=== PATIENT | female | born 1990 | race Caucasian/White ===

== ENCOUNTER 2016-07-02 04:22 | Emergency (ER) | payer BC, OTHER ==
[2016-07-02 04:31] VITALS: BP 142/79; PULSE 120; RESP 20; TEMP 98.7
[2016-07-02] MEDS ORDERED: ACETAMINOPHEN TAB 325 MG TAB PO STA (05:23)
--- NOTE | 2016-07-02 05:23 | ED ---
URI HPI - General Chief Complaint: Upper Respiratory Infection Stated Complaint: congestion Time Seen by Provider: 07/02/16 05:00 Source: patient Mode of arrival: ambulatory Limitations: no limitations - History of Present Illness Initial Comments: This patient is a 25-year-old woman who presents with complaint that she has had 2 weeks of nasal congestion and right maxillary sinus pressure. The patient states that she is having moderate pressure type pain. It is worse when she attempts to blow her nose. She has not had any relieving factors. She may have also had some fevers associated. The patient states that she is so she did not take any medications. She was attempting to get in with her physician but they did not have appointments until the coming week so she came here. Patient denies abdominal pain, leg swelling, contraction type pains. She is having good movements. MD Complaint: nasal congestion, sinus pain -: week(s) Severity: moderate Quality: other (Pressure) Consistency: constant Improves With: nothing Worsens With: other (Attempting to blow her nose) Associated Symptoms: nasal congestion, cough - Related Data Home Medications Medication Instructions Recorded Confirmed Ferrous Sulfate [Feosol] 325 mg PO DAILY 07/02/16 07/02/16 Pnv with Ca,No.72/Iron/FA 1 each PO DAILY 07/02/16 07/02/16 [ Plus Tablet] Previous Rx's Medication Instructions Recorded Azithromycin [Zithromax Z-pack] 250 mg PO DIRECTED #6 tab 07/02/16 Allergies Allergy/AdvReac Type Severity Reaction Status Date / Time Penicillins Allergy Rash/Hives Verified 07/02/16 04:30 Review of Systems ROS Statement: Those systems with pertinent positive or pertinent negative responses have been documented in the HPI. ROS Other: All systems not noted in ROS Statement are negative. Constitutional: Denies: fever, chills, weakness ENT: Reports: congestion. Denies: ear pain, throat pain, hearing loss Respiratory: Reports: cough. Denies: dyspnea, wheezes, stridor Cardiovascular: Denies: chest pain, orthopnea, edema Gastrointestinal: Denies: abdominal pain, vomiting, diarrhea Genitourinary: Denies: urgency, dysuria, frequency, hematuria, discharge Musculoskeletal: Denies: back pain Neurological: Denies: headache, weakness, numbness Past Medical History Past Medical History: No Reported History History of Any Multi-Drug Resistant Organisms: None Reported Past Surgical History: Adenoidectomy, Tonsillectomy Past Psychological History: No Psychological Hx Reported Smoking Status: Never smoker Past Alcohol Use History: None Reported Past Drug Use History: None Reported General Exam Limitations: no limitations General appearance: alert, in no apparent distress Head exam: Present: atraumatic, normocephalic, normal inspection Eye exam: Present: normal appearance, PERRL, EOMI. Absent: scleral icterus, conjunctival injection, nystagmus ENT exam: Present: normal oropharynx, TM's normal bilaterally, normal external ear exam, other (Patient has copious discharge from the right naris and there is some evident congestion of turbinates. There is no facial swelling. There is some moderate tenderness with percussion over the right maxillary sinus.) Neck exam: Present: normal inspection, full ROM. Absent: tenderness, meningismus, lymphadenopathy Respiratory exam: Present: normal lung sounds bilaterally. Absent: respiratory distress, wheezes, rales, rhonchi Cardiovascular Exam: Present: regular rate, normal rhythm, normal heart sounds GI/Abdominal exam: Present: soft, other (There is active movement palpable ). Absent: distended, tenderness, guarding, rebound, rigid Extremities exam: Present: normal inspection, normal capillary refill. Absent: pedal edema, calf tenderness Neurological exam: Present: alert, normal gait Skin exam: Present: warm, dry, intact, normal color. Absent: rash Course Vital Signs 07/02/16 04:25 Temperature 98.7 F Pulse Rate 120 H Respiratory 20 Rate Blood Pressure 142/79 O2 Sat by Pulse 98 Oximetry Disposition Clinical Impression: Sinusitis Disposition: HOME SELF-CARE Condition: Fair Instructions: Rhinosinusitis (ED) Prescriptions: Azithromycin [Zithromax Z-pack] 250 mg PO DIRECTED #6 tab Referrals: Lucian Loera DO [Primary Care Provider] - 1-2 days Ryan Leon NPC [REFERRING] - 1-2 days
== END 2016-07-02 05:33 | disposition home or self-care (01) ==
LOC: EC 04:22
DX: O99.519 Diseases of the respiratory system complicating pregnancy, unspecified trimester (principal); J32.9 Chronic sinusitis, unspecified; Z88.0 Allergy status to penicillin; Z79.899 Other long term (current) drug therapy; Z90.89 Acquired absence of other organs; Z3A.00 Weeks of gestation of pregnancy not specified
CPT/HCPCS: 99283